=== PATIENT | male | born 1955 | race Caucasian/White ===

== ENCOUNTER 2017-10-08 08:54 | Inpatient (IN) | payer OTHER ==
[2017-10-08] MEDS ORDERED: HYDROMORPHONE HCL INJ/PF 2 MG/ML AMPULE IV ONE (09:13)
--- NOTE | 2017-10-08 09:13 | ER Document Report ---
ED General - General Chief Complaint: Ankle Injury Stated Complaint: RIGHT ANKLE PAIN Time Seen by Provider: 10/08/17 09:00 Mode of Arrival: Ambulatory Information source: Patient Notes: 62 yr old male presents with complaints of right ankle pain of 1 week duration. Pt denies any fevers or chills, noted he slipped on his ankle , unable to ambulated without pain. pt seen at [facility],noted to have trimalleolar fracture , no ortho coverage was found and patient was attempted to be transferred but he refused. pt went ot [facility] today and sent in for evaluation. TRAVEL OUTSIDE OF THE [place] IN LAST 30 DAYS: No - HPI Onset: Last week Onset/Duration: Persistent Quality of pain: Sharp Severity: Mild Pain Level: 1 Associated symptoms: Body/muscle aches Exacerbated by: Movement Relieved by: Denies Similar symptoms previously: Yes Recently seen / treated by doctor: Yes Past Medical History - Social History Smoking Status: Current Every Day Smoker Cigarette use (# per day): Yes Chew tobacco use (# tins/day): No Smoking Education Provided: No Family History: Reviewed & Not Pertinent Review of Systems - Review of Systems Notes: REVIEW OF SYSTEMS: CONSTITUTIONAL : Denies fever, chills, or sweats. Denies recent illness. EENT: Denies eye, ear, throat, or mouth pain or symptoms. Denies nasal or sinus congestion or discharge. Denies throat, tongue, or mouth swelling or difficulty swallowing. CARDIOVASCULAR: Denies chest pain. Denies palpitations or racing or irregular heart beat. Denies ankle edema. RESPIRATORY: Denies cough, cold, or chest congestion. Denies shortness of breath, difficulty breathing, or wheezing. GASTROINTESTINAL: Denies abdominal pain or distention. Denies nausea, vomiting , or diarrhea. Denies blood in vomitus, stools, or per rectum. Denies black, tarry stools. Denies constipation. GENITOURINARY: Denies difficulty urinating, painful urination, burning, frequency, blood in urine, or discharge. MUSCULOSKELETAL: Admits to right ankle pain SKIN: Denies rash, lesions or sores. HEMATOLOGIC : Denies easy bruising or bleeding. LYMPHATIC: Denies swollen, enlarged glands. NEUROLOGICAL: Denies confusion or altered mental status. Denies passing out or loss of consciousness. Denies dizziness or lightheadedness. Denies headache. Denies weakness or paralysis or loss of use of either side. Denies problems with gait or speech. Denies sensory loss, numbness, or tingling. Denies seizures. PSYCHIATRIC: Denies anxiety or stress. Denies depression, suicidal ideation, or homicidal ideation. ALL OTHER SYSTEMS REVIEWED AND NEGATIVE. Dictation was performed using [employer] voice recognition software PHYSICAL EXAMINATION: GENERAL: Well-appearing, well-nourished and in no acute distress. HEAD: Atraumatic, normocephalic. EYES: Pupils equal round and reactive to light, extraocular movements intact, sclera anicteric, conjunctiva are normal. ENT: Nares patent, oropharynx clear without exudates. Moist mucous membranes. NECK: Normal range of motion, supple without lymphadenopathy LUNGS: Breath sounds clear to auscultation bilaterally and equal. No wheezes rales or rhonchi. HEART: Regular rate and rhythm without murmurs ABDOMEN: Soft, nontender, nondistended abdomen. No guarding, no rebound. No masses appreciated. Musculoskeletal: Right foot swelling ankle deformity NEUROLOGICAL: Cranial nerves grossly intact. Normal speech, normal gait. Normal sensory, motor exams PSYCH: Normal mood, normal affect. SKIN: There is skin tear medial ankle with cellulitic component to the mid tib- fib Physical Exam - Vital signs Vitals: Temp Pulse Resp BP Pulse Ox 97.8 F 84 18 153/88 H 98 10/08/17 09:04 10/08/17 09:04 10/08/17 09:04 10/08/17 09:04 10/08/17 09:04 Course - Re-evaluation Re-evalutation: 10/08/17 09:13 Dr Khan paged, it appears the patient's has fracture with cellulitic component 10/08/17 10:38 X-rays consistent with fracture, lab work antibiotics have been started 10/08/17 10:47 Dr. khan will admit the patient to his service - Vital Signs Vital signs: Temp Pulse Resp BP Pulse Ox 97.8 F 84 18 153/88 H 98 10/08/17 09:04 10/08/17 09:04 10/08/17 09:04 10/08/17 09:04 10/08/17 09:04 - Laboratory Result Diagrams: 10/08/17 09:39 10/08/17 09:39 Laboratory results interpreted by me: 10/08/17 10/08/17 09:39 09:39 RDW 14.6 H Chloride 95 L Carbon Dioxide 32 H BUN 24 H Glucose 113 H Calcium 10.4 H Alkaline Phosphatase 199 H - Diagnostic Test Radiology reviewed: Image reviewed - Bimalleolar fracture with Larry dislocation noted, Reports reviewed Discharge - Discharge Clinical Impression: Ankle fracture Qualifiers: Encounter type: subsequent encounter Fracture type: closed Laterality: right Fracture healing: with delayed healing Qualified Code(s): S82.891G - Other fracture of right lower leg, subsequent encounter for closed fracture with delayed healing Cellulitis Qualifiers: Site of cellulitis: extremity Site of cellulitis of extremity: lower extremity Laterality: right Qualified Code(s): L03.115 - Cellulitis of right lower limb Condition: Stable Disposition: ADMITTED INPATIENT Admitting Provider: Olga Unit Admitted: Surgical Floor
[2017-10-08] MEDS ORDERED: VANCOMYCIN HCL INJ 1000 MG VIAL IV ONE (09:19)
[2017-10-08] MEDS ORDERED: NORMAL SALINE 1000 ML 1,000 ML IV ONE (09:44)
[2017-10-08 09:54] LABS: ABSOLUTE EOSINOPHILS # (AUTO) 0.1 10^3/uL (0.0-0.6); ABSOLUTE LYMPHOCYTES (AUTO) 1.2 10^3/uL (0.5-4.7); ABSOLUTE MONOCYTES (AUTO) 0.8 10^3/uL (0.1-1.4); ABSOLUTE NEUT (AUTO) 4.4 10^3/uL (1.7-8.2); BASOPHILS % (AUTO) 0.7 % (0-2); EOSINOPHILS % (AUTO) 2.2 % (0-6); HEMATOCRIT 43.5 % (37.9-51.0); LYMPHOCYTES % (AUTO) 18.5 % (13-45); MEAN CORPUSCULAR HEMOGLOBIN 32.5 pg (27.0-33.4); MEAN CORPUSCULAR HGB CONC 34.4 g/dL (32.0-36.0); MEAN CORPUSCULAR VOLUME 94 fl (80-97); MONOCYTES % (AUTO) 12.2 % (3-13); PLATELET COUNT 406 10^3/uL (150-450); RED BLOOD COUNT 4.61 10^6/uL (4.35-5.55); RED CELL DISTRIBUTION WIDTH 14.6 % (11.5-14.0); SEGMENTED NEUTROPHILS % (AUTO) 66.4 % (42-78); TOTAL CELLS COUNTED % (AUTO) 100 %; WHITE BLOOD COUNT 6.6 10^3/uL (4.0-10.5)
[2017-10-08 10:10] LABS: ALANINE AMINOTRANSFERASE 46 U/L (21-72); ALBUMIN 4.9 g/dL (3.5-5.0); ALKALINE PHOSPHATASE 199 U/L (38-126); ANION GAP 13 (5-19); ASPARTATE AMINO TRANSFERASE 54 U/L (17-59); BILIRUBIN,DIRECT 0.2 mg/dL (0.0-0.4); BILIRUBIN,TOTAL 0.5 mg/dL (0.2-1.3); BLOOD UREA NITROGEN 24 mg/dL (7-20); CALCIUM 10.4 mg/dL (8.4-10.2); CARBON DIOXIDE 32 mmol/L (22-30); CHLORIDE 95 mmol/L (98-107); GLUCOSE 113 mg/dL (75-110); POTASSIUM 3.6 mmol/L (3.6-5.0); SODIUM 140.4 mmol/L (137-145); TOTAL PROTEIN 7.9 g/dL (6.3-8.2)
--- NOTE | 2017-10-08 10:17 | RADIOLOGY REPORT (SQ) ---
EXAM DESCRIPTION: ANKLE RIGHT COMPLETE COMPLETED DATE/TIME: 10/08/2017 9:49 am REASON FOR STUDY: trimallelar fracture COMPARISON: None. NUMBER OF VIEWS: Three views. TECHNIQUE: AP, lateral, and oblique radiographic images acquired of the right ankle. LIMITATIONS: None. FINDINGS: MINERALIZATION: Normal. BONES: There is an oblique fracture of the distal fibula in transverse fracture of the medial malleol us. JOINTS: There is lateral displacement of the talus in relation to the ankle mortise. SOFT TISSUES: There is associated soft tissue swelling. A radiopaque density is identified projected in the soft tissues adjacent to the tarsal bones anteriorly of uncertain etiology. OTHER: No other significant finding. IMPRESSION: Fractures involving the distal fibula and medial malleolus as noted above. There is lat eral displacement of the talus in relation to the ankle mortise. Other findings as noted above TECHNICAL DOCUMENTATION: JOB ID: [id number] [employer]- All Rights Reserved Reading location - IP/workstation name: [email or web address]
--- NOTE | 2017-10-08 13:42 | EKG REPORT ---
SEVERITY:- BORDERLINE ECG - SINUS RHYTHM NONSPECIFIC ST-T CHANGES- INFERIOR LEADS : Confirmed by: Fritz Santos MD 08-Oct-2017 13:40:28
[2017-10-08] MEDS ORDERED: ACETAMINOPHEN 325 MG TABLET PO PRN (14:37)
[2017-10-08] MEDS ORDERED: OXYCODONE-ACETAMINOPHEN 5-325 MG TABLET PO PRN (14:37)
[2017-10-08] MEDS ORDERED: ONDANSETRON HCL INJ/PF 4 MG/2 ML SDV IV PRN (14:37)
[2017-10-08] MEDS ORDERED: DEXTROSE 5%-LACTATED RINGERS 1,000 ML IV PRN (14:37)
--- NOTE | 2017-10-08 15:23 | PDOC H&P ---
History of Present Illness Admission Date/PCP: 10/08/17 10:57 Patient complains of: Right ankle fracture, right lower extremity cellulitis History of Present Illness: HIMANSHU TROY is a 62 year old male who slipped and fell on September2017. He sought care in [facility] however there was no costume specialist to manage his care. He was unable to ambulate without pain however tolerated pain for the next few days. Today he reports he could no longer manage the pain and went to [facility] to be evaluated and treated. He was then transferred to [facility] emergency department for further workup and management. In the emergency department x-ray imaging confirms trimalleolar ankle fracture of right ankle as well as cellulitis of right lower extremity. He has been admitted to orthopedic surgical service for IV antibiotic therapy and maintenance control of cellulitis and later likely open reduction internal fixation right ankle fracture. Past Medical History Cardiac Medical History: Reports: Hypertension Pulmonary Medical History: Reports: None EENT Medical History: Reports: None Neurological Medical History: Reports: None Endocrine Medical History: Reports: None Renal/ Medical History: Reports: None Malignancy Medical History: Reports: None GI Medical History: Reports: None Musculoskeltal Medical History: Reports: None Skin Medical History: Reports: None Psychiatric Medical History: Reports: General Anxiety Disorder Traumatic Medical History: Reports: None Hematology: Reports: None Infectious Medical History: Reports: None Past Surgical History Past Surgical History: Reports: None Social History Information Source: Patient Smoking Status: Current Every Day Smoker Family History Family History: Reviewed & Not Pertinent Parental Family History Reviewed: No Children Family History Reviewed: No Sibling(s) Family History Reviewed.: No Medication/Allergy Home Medications: Venlafaxine HCl ER [Effexor Xr 75 mg Cap.sr] 75 mg PO DAILY 10/08/17 Venlafaxine HCl [Effexor Xr] 150 mg PO DAILY 10/08/17 Review of Systems Constitutional: PRESENT: as per HPI Ears: ABSENT: as per HPI, hearing changes, other Nose, Mouth, and Throat: ABSENT: as per HPI, headache(s), mouth pain, sore throat, vertigo, other Cardiovascular: ABSENT: as per HPI, chest pain, dyspnea on exertion, edema, orthropnea, palpitations, other Respiratory: ABSENT: as per HPI, cough, dyspnea, hemoptysis, sputum, other Gastrointestinal: ABSENT: as per HPI, abdominal pain, bloating, coffee ground emesis, constipation, diarrhea, dysphagia, heartburn, hematemesis, hematochezia , melena, nausea, vomiting, other Genitourinary: ABSENT: as per HPI, difficulty urinating, dysuria, hematuria, nocturia, other Musculoskeletal: PRESENT: joint swelling, other - Reports right ankle pain and swelling particularly without elevation Integumentary: PRESENT: erythema Psychiatric: PRESENT: anxiety - Patient reports he suffers from anxiety and takes medication for it Endocrine: ABSENT: as per HPI, cold intolerance, flushing, heat intolerance, menstrual abnormalities, polydipsia, polyphagia, polyuria, other Hematologic/Lymphatic: ABSENT: as per HPI, easy bleeding, easy bruising, lymphadenopathy, other Allergic/Immunologic: ABSENT: as per HPI, seasonal rhinorrhea, other Physical Exam Vital Signs: Temp Pulse Resp BP Pulse Ox 37.0 C 69 18 164/77 H 98 10/08/17 12:47 10/08/17 12:47 10/08/17 12:47 10/08/17 12:47 10/08/17 12:47 General appearance: PRESENT: mild distress Head exam: PRESENT: atraumatic Eye exam: PRESENT: EOMI Mouth exam: PRESENT: moist Teeth exam: PRESENT: poor dentation Respiratory exam: PRESENT: unlabored Pulses: PRESENT: normal radial pulses Vascular exam: PRESENT: normal capillary refill Extremities exam: PRESENT: joint swelling, pedal edema, tenderness Additional comments: Patient sitting upright in hospital bed with bilateral lower extremities in full extension. Right lower extremity is placed in short leg splint. Splint materials and bandages are clean dry and intact. This is left in place due to instability of patient's fracture. Slightly tender to palpation through splint along anterior mortise joint. There is minimal lower extremity edema noted outside of the splint. No sensory or motor deficits noted. Less than 2 seconds capillary refill to toes on right lower extremity. Musculoskeletal exam: PRESENT: ambulatory Additional comments: Patient is ambulatory with crutches however he is non-weightbearing status on right lower extremity. This was reiterated to the patient and importance of nonweightbearing stress due to the instability of his fracture. Patient voiced understanding and is in agreement with this plan. He reports decreased pain with elevation however increased pain with leg in anatomical position standing upright. Patient was informed elevation and ice is ideal to decrease swelling and pain associated with his fracture at this point. He will likely undergo surgical fixation of his ankle fracture after which he will benefit from physical therapy services. Neurological exam: PRESENT: alert, awake, oriented to person, oriented to place , oriented to time, oriented to situation, CN II-XII grossly intact. ABSENT: motor sensory deficit Psychiatric exam: PRESENT: agitated, anxious, other - Patient became very vocal and angry throughout exam. He notes he did not expect to be admitted to the hospital and/or require surgery. He is very concerned for the health of his chickens in his home. He is not pleased with the treatment plan in place. Focused psych exam: PRESENT: psychomotor agitation, restlessness Skin exam: PRESENT: dry, intact, warm, other - Although splint was not removed from right lower extremity, previous exam completed by emergency room physician indicates swelling, sores, abrasions of right lower extremity indicative of cellulitis.. ABSENT: cyanosis, rash Results Impressions: Ankle X-Ray 10/08/17 09:19 IMPRESSION: Fractures involving the distal fibula and medial malleolus as noted above. There is lateral displacement of the talus in relation to the ankle mortise. Other findings as noted above Assessment & Plan - Diagnosis (1) Ankle fracture Qualifiers: Encounter type: subsequent encounter Fracture type: closed Laterality: right Fracture healing: with delayed healing Qualified Code(s): S82.891G - Other fracture of right lower leg, subsequent encounter for closed fracture with delayed healing Plan: 62-year-old white male with trimalleolar right ankle fracture currently stabilized in a splint. Patient has been admitted to surgical floor by orthopedic service. At this time he will receive multiple doses of IV antibiotics to control cellulitis of right lower extremity. Once infection is under control we will likely plan for open reduction internal fixation of right ankle fracture. In the meantime we will continue: 1. DVT prophylaxis 2. Pain control 3. Nonweightbearing status right lower extremity 4. IV clindamycin (2) Cellulitis Qualifiers: Site of cellulitis: extremity Site of cellulitis of extremity: lower extremity Laterality: right Qualified Code(s): L03.115 - Cellulitis of right lower limb Plan: Patient has been admitted to the hospital under orthopedic surgery and will likely undergo open reduction internal fixation for right trimalleolar ankle fracture. Before this can occur however we must maintain control of right lower extremity cellulitis. Blood cultures have been ordered to assess extent of infection and patient has been placed on 600 mg IV clindamycin Q8 hours. Once blood cultures have been obtained we may alter antibiotics accordingly.
[2017-10-08] MEDS ORDERED: VENLAFAXINE HCL 75 MG CAP.SR.24H PO ONE (16:30)
--- NOTE | 2017-10-08 17:47 | PDOC DISCHARGE SUMMARY ---
General - Admit/Disc Date/PCP Admission Date/Primary Care Provider: 10/08/17 10:57 Discharge Date: 10/08/17 - Additional Information Discharge Diet: As Tolerated Discharge Activity: Keep Legs Elevated, No Lifting Over 10 Pounds, No Lifting/ Push/Pulling, Other - Non weight bearing right ankle Prescriptions: Cephalexin Monohydrate [Keflex 500 mg Capsule] 500 mg PO QID #20 capsule Oxycodone HCl/Acetaminophen [Percocet 5-325 mg Tablet] 1 - 2 tab PO ASDIR PRN # 25 tablet PRN Reason: Home Medications: Amlodipine Besylate [Norvasc 10 mg Tablet] 10 mg PO DAILY 10/08/17 Cephalexin Monohydrate [Keflex 500 mg Capsule] 500 mg PO QID #20 capsule Hydrochlorothiazide [Hydrodiuril 25 mg Tablet] 25 mg PO DAILY 10/08/17 Ipratropium/Albuterol Sulfate [Combivent Inhaler] 1 puff IH QID 10/08/17 Lidocaine HCl 1 applic TP BIDP PRN 10/08/17 Metoprolol Tartrate [Lopressor 50 mg Tablet] 25 mg PO Q12 10/08/17 Multivitamin [Tab-A-Timmy (Multiple Vitamin) Tablet] 1 tab PO DAILY 10/08/17 Oxycodone HCl/Acetaminophen [Percocet 5-325 mg Tablet] 1 - 2 tab PO ASDIR PRN # 25 tablet 10/08/17 Venlafaxine HCl ER [Effexor Xr 75 mg Cap.sr] 75 mg PO DAILY 10/08/17 Venlafaxine HCl [Effexor Xr] 150 mg PO DAILY 10/08/17 History of Present Illness History of Present Illness: HIMANSHU TROY is a 62 year old male who on 10/01/17 sustained a fall resulting in a fracture dislocation of his right ankle. Patient was seen at [facility] where he was found to have a fracture dislocation of his ankle and was placed in a splint. Patient had delayed follow-up but was seen by [facility] today and felt patient required surgical intervention and was then sent to emergency room. While in the emergency room concern of possible cellulitis was diagnosed and patient was started on IV antibiotics and placed in a splint and admitted to the orthopedic service. Currently patient states pain is controlled. Has been taking Percocet with some relief. Hospital Course Hospital Course: Patient was admitted to orthopedic service on 10/08/17 and given IV antibiotics. Subsequently his splint was removed that was placed emergency room to further evaluate patient's ankle and medial wound. Patient was found to have fracture blisters but no definitive infection was appreciated. Thus patient was placed in a well-padded 3 sided plaster splint maintaining reduction of the tibiotalar articulation which was confirmed by x-ray. At that point it was decided patient was orthopedically stable for discharge home. He was given antibiotics prophylactically and stressed the importance of nonweightbearing and elevation of the extremity. Patient will contact our office on 10/11/17 to set up follow-up appointment so he can undergo definitive fixation. Fixation is being delayed due to patient's wound issues which would be high risk for infection. Physical Exam Vital Signs: Temp Pulse Resp BP Pulse Ox 98.3 F 74 18 147/80 H 94 10/08/17 15:35 10/08/17 15:35 10/08/17 15:35 10/08/17 15:35 10/08/17 15:35 General appearance: PRESENT: no acute distress, well-developed, well-nourished Head exam: PRESENT: atraumatic, normocephalic Eye exam: PRESENT: conjunctiva pink, EOMI, PERRLA. ABSENT: scleral icterus Ear exam: PRESENT: normal external ear exam Mouth exam: PRESENT: moist, tongue midline Neck exam: PRESENT: full ROM. ABSENT: carotid bruit, JVD, lymphadenopathy, thyromegaly Cardiovascular exam: PRESENT: RRR. ABSENT: diastolic murmur, rubs, systolic murmur Pulses: PRESENT: normal dorsalis pedis pul, +2 pedal pulses bilateral Vascular exam: PRESENT: normal capillary refill GI/Abdominal exam: PRESENT: normal bowel sounds, soft. ABSENT: distended, guarding, mass, organolmegaly, rebound, tenderness Rectal exam: PRESENT: deferred Extremities exam: PRESENT: other - Right ankle: Fracture blisters noted posteriorly and medially with skin loss along the medial aspect. No evidence of open wound or exposed bone. Significant swelling and ecchymosis throughout the ankle. Dorsalis pedis pulse 2+. No sensory deficits. Intact flexion extension of the toes. Neurological exam: PRESENT: alert, awake, oriented to person, oriented to place , oriented to time, oriented to situation, CN II-XII grossly intact. ABSENT: motor sensory deficit Psychiatric exam: PRESENT: appropriate affect, normal mood. ABSENT: homicidal ideation, suicidal ideation Skin exam: PRESENT: dry, intact, warm. ABSENT: cyanosis, rash Results Impressions: Ankle X-Ray 10/08/17 09:19 IMPRESSION: Fractures involving the distal fibula and medial malleolus as noted above. There is lateral displacement of the talus in relation to the ankle mortise. Other findings as noted above Status: Image reviewed by me - I have reviewed multiple radiographs of the right ankle which demonstrate trimalleolar ankle fracture with lateral displacement but maintained reduction within the tibiotalar articulation Qualifiers - * PATEINT BEING DISCHARGED WITH ANY OF THE FOLLOWING DIAGNOSIS?: No VTE patient discharged on overlapping Therapy?: No Reason(s) for not prescribing Overlap Therapy:: Not indicated Stroke Pt being discharged on Anti-thrombolytic therapy?: No Reason(s) for not prescribing Anti-thrombolytic therapy:: Not indicated Stroke Pt being discharged on Anti-coagulation therapy?: No Reason(s) for not prescribing Anti-coagulation therapy:: Not indicated Stroke Pt being discharged on Statins?: No Reason(s) for not prescribing Statins therapy:: Not indicated AL Pt being discharged on Aspirin therapy?: No Reason(s) for not prescribing Aspirin therapy:: Not indicated AL Pt being discharged on Statins?: No Reason(s) for not prescribing Statin therapy:: Not indicated AL Pt discharged ACEI/ARBS?: No Reason(s) for not prescribing ACEI/ARBS:: Not indicated HF Pt being discharged on ACEI for LVEF less than 40%?: No Reason(s) for not prescribing ACEI:: Not indicated HF Pt being discharged on ARBS for LVEF less than 40%?: No Reason(s) for not prescribing ARBS:: Not indicated HF Pt with Afib discharged with Warfarin?: No Reason(s) for not prescribing Warfarin:: Not indicated HF Pt discharged on evidence-based Beta Christiano:: No Reason(s) for not prescribing evidence-based Beta Christiano:: Not indicated Plan Discharge Plan: Given the patient's fracture blisters and swelling is not a good surgical candidate at this point requires the swelling to subside in order to proceed with fixation on a lower infectious risks. Thus today patient will maintain nonweightbearing in his axillary crutches. Has been given prescription for Percocet to take as needed for pain. Will follow in the office in 7 days for recheck. Patient noticed increasing pain, swelling, temperature greater than 101.5 he will contact our office. Time Spent: Greater than 30 Minutes
--- NOTE | 2017-10-08 17:59 | RADIOLOGY REPORT (SQ) ---
EXAM DESCRIPTION: ANKLE RIGHT COMPLETE COMPLETED DATE/TIME: 10/08/2017 5:43 pm REASON FOR STUDY: Post splinting. COMPARISON: 10/08/2017 TECHNIQUE: AP lateral and oblique images of right ankle were obtained post splinting. LIMITATIONS: Bony detail is limited somewhat due to an overlying cast FINDINGS: The previously described fractures of the distal tibia and fibula are again identified. O verlying cast is identified IMPRESSION: Images obtained post casting as noted above. TECHNICAL DOCUMENTATION: JOB ID: [id number] [employer]- All Rights Reserved Reading location - IP/workstation name: [email or web address]
[2017-10-08] MEDS ORDERED: CLINDAMYCIN 600 MG/D5W RTU 600 MG/50 ML RTUPB IV SCH (18:00)
[2017-10-08 18:18] VITALS: BP 132/84
[2017-10-08] MEDS ORDERED: ZOLPIDEM TARTRATE 5 MG TABLET PO SCH (22:00)
[2017-10-08] MEDS ORDERED: DEXTROSE 5% IV SCH (22:00)
[2017-10-08] MEDS ORDERED: CLINDAMYCIN PHOSPHATE IV SCH (22:00)
[2017-10-08] MEDS ORDERED: WATER IV SCH (22:00)
[2017-10-09] MEDS ORDERED: LANSOPRAZOLE 15 MG TAB.RAP.DR PO SCH (06:00)
[2017-10-09] MEDS ORDERED: DOCUSATE SODIUM 100 MG CAPSULE PO SCH (10:00)
[2017-10-09] MEDS ORDERED: VENLAFAXINE HCL 75 MG CAP.SR.24H PO SCH (10:00)
[2017-10-09] MEDS ORDERED: ENOXAPARIN SODIUM INJ 30 MG/0.3 ML DISP.SYRIN SUBCUT SCH (10:00)
== END 2017-10-08 18:52 | disposition home or self-care (01) | DRG 603 ==
LOC: ER 08:54 → EH 10:57 → 4W 12:58
PROVIDERS: ADMIT Orthopaedic Surgery; ATTEND Orthopaedic Surgery
PROC: 2W3LX1Z Immobilization of Right Lower Extremity using Splint (ICD-10-PCS; principal; 2017-10-08)
DX: L03.115 Cellulitis of right lower limb (principal); S82.851G Displaced trimalleolar fracture of right lower leg, subsequent encounter for closed fracture with delayed healing; I10 Essential (primary) hypertension; F41.1 Generalized anxiety disorder; F17.210 Nicotine dependence, cigarettes, uncomplicated; W01.0XXD Fall on same level from slipping, tripping and stumbling without subsequent striking against object, subsequent encounter; Z79.899 Other long term (current) drug therapy; Z91.81 History of falling
CPT/HCPCS: 36415; 80053; 83605; 85025; 87040; 93005; 93010; 96365; 96375; 99285; J1170; J3370; J7030

== ENCOUNTER 2017-10-18 07:52 | Day surgery (SDC) | payer OTHER ==
[~2017-10-18 07:52] MED LIST: ACETAMINOPHEN 100 ML IV ONE; CEFAZOLIN SODIUM 2 GM in DEXTROSE 5%-WATER 100 ML IV PRN; CEFAZOLIN SODIUM 2 GM in NORMAL SALINE 100 ML IV PRN; DEXAMETHASONE SOD PHOSPHATE INJ 4 MG/1 ML VIAL ONE; FENTANYL CITRATE INJ/PF 100 MCG/2 ML AMPUL ONE; LIDOCAINE 2% INJ-PF (20 MG/ML) 10 ML AMPUL ONE; MIDAZOLAM 2 MG/2 ML INJ ONE; ONDANSETRON HCL INJ/PF 4 MG/2 ML SDV ONE; PROPOFOL INJ 200 MG/20 ML VIAL IV ONE; TETRACAINE HCL/PF 20MG/2ML AMPULE (SPINAL) ONE
[2017-10-18 08:45] LABS: ABSOLUTE BASOPHILS # (AUTO) 0.1 10^3/uL (0.0-0.2); ABSOLUTE EOSINOPHILS # (AUTO) 0.2 10^3/uL (0.0-0.6); ABSOLUTE LYMPHOCYTES (AUTO) 1.3 10^3/uL (0.5-4.7); ABSOLUTE MONOCYTES (AUTO) 0.9 10^3/uL (0.1-1.4); ABSOLUTE NEUT (AUTO) 6.9 10^3/uL (1.7-8.2); BASOPHILS % (AUTO) 0.8 % (0-2); EOSINOPHILS % (AUTO) 2.6 % (0-6); HEMATOCRIT 39.6 % (37.9-51.0); HEMOGLOBIN 13.8 g/dL (13.5-17.0); LYMPHOCYTES % (AUTO) 13.8 % (13-45); MEAN CORPUSCULAR HEMOGLOBIN 32.9 pg (27.0-33.4); MEAN CORPUSCULAR HGB CONC 34.9 g/dL (32.0-36.0); MEAN CORPUSCULAR VOLUME 94 fl (80-97); MONOCYTES % (AUTO) 9.5 % (3-13); PLATELET COUNT 418 10^3/uL (150-450); RED BLOOD COUNT 4.21 10^6/uL (4.35-5.55); RED CELL DISTRIBUTION WIDTH 14.4 % (11.5-14.0); SEGMENTED NEUTROPHILS % (AUTO) 73.3 % (42-78); TOTAL CELLS COUNTED % (AUTO) 100 %; WHITE BLOOD COUNT 9.4 10^3/uL (4.0-10.5)
--- NOTE | 2017-10-18 08:54 | RADIOLOGY REPORT (SQ) ---
EXAM DESCRIPTION: CHEST SINGLE VIEW COMPLETED DATE/TIME: 10/18/2017 8:46 am REASON FOR STUDY: preop COMPARISON: None. EXAM PARAMETERS: NUMBER OF VIEWS: One view. TECHNIQUE: Single frontal radiographic view of the chest acquired. RADIATION DOSE: NA LIMITATIONS: None. FINDINGS: LUNGS AND PLEURA: No opacities, masses or pneumothorax. No pleural effusion. MEDIASTINUM AND HILAR STRUCTURES: No masses. Contour normal. HEART AND VASCULAR STRUCTURES: Heart normal in size. Normal vasculature. BONES: No acute findings. HARDWARE: None in the chest. OTHER: No other significant finding. IMPRESSION: NO ACUTE RADIOGRAPHIC FINDING IN THE CHEST. TECHNICAL DOCUMENTATION: JOB ID: [id number] [employer]- All Rights Reserved Reading location - IP/workstation name: [email or web address]
[2017-10-18 09:06] LABS: ANION GAP 14 (5-19); BLOOD UREA NITROGEN 24 mg/dL (7-20); CALCIUM 9.9 mg/dL (8.4-10.2); CARBON DIOXIDE 29 mmol/L (22-30); CHLORIDE 99 mmol/L (98-107); GLUCOSE 110 mg/dL (75-110); POTASSIUM 3.8 mmol/L (3.6-5.0); SODIUM 141.7 mmol/L (137-145)
[2017-10-18] MEDS ORDERED: BUPIVACAINE HCL 0.5%-EPI 1:200000 INJ/PF 30 ML VIAL ONE (10:09)
[2017-10-18] MEDS ORDERED: MEPERIDINE HCL/PF INJ 25 MG/1 ML DISP.SYRIN IV PRN (10:44)
[2017-10-18] MEDS ORDERED: DIPHENHYDRAMINE HCL 50 MG/ML VIAL IV PRN (10:44)
[2017-10-18] MEDS ORDERED: FENTANYL CITRATE INJ/PF 100 MCG/2 ML AMPUL IV PRN ×3 (10:44)
[2017-10-18] MEDS ORDERED: MORPHINE SULFATE 10 MG/ML INJ IV PRN (10:44)
[2017-10-18] MEDS ORDERED: PROMETHAZINE HCL INJ 25 MG/1 ML VIAL IV PRN ×2 (10:44)
[2017-10-18] MEDS ORDERED: ONDANSETRON HCL INJ/PF 4 MG/2 ML SDV IV PRN (10:44)
--- NOTE | 2017-10-18 11:14 | Operative Report ---
Operative Report DATE OF SURGERY: 10/18/17 PREOPERATIVE DIAGNOSIS: Right bimalleolar ankle fracture/nonunion OPERATION: Open reduction internal fixation right ankle fracture. Takedown of malunion SURGEON: NICKI LUKE ANESTHESIA: GA PROCEDURE: With the patient supine and the operating room table the right lower extremities prepped and draped in sterile fashion. A longitudinal incision the incision was made over the distal lateral fibula and sharp dissection was carried incision to the underlying bone. The fracture is identified. The fracture callus that had set up is removed using combination of curettes and rondure. A reduction is affected by placing the periosteal elevator in the fracture and using as a prior bar to get the fracture back to near anatomic reduction. Subsequently a [place] titanium lateral distal fibula plate is applied secured with 3 screws proximally 4 screws distally. Attention is now turned to the medial aspect of the ankle. Similarly a longitudinal incision was made over the medial malleolus. The fracture is identified. The fracture callus that has intervened is removed using rondure and a curette. The fracture is reduced and held in place with 2 pins. Subsequently to 50 mm 4.0 mm cannulated screws are placed over the pins to secure the reduction. At this point the tourniquet was deflated and hemostasis obtained with electrocautery. The wound is closed in layers with interrupted Vicryl followed by roxane. A sterile compressive dressing and posterior plaster splint were applied. The patient's return to the PACU in satisfactory condition.
[2017-10-18] MEDS ORDERED: OXYCODONE HCL IR 5 MG TABLET PO PRN (11:23)
[2017-10-18] MEDS ORDERED: ONDANSETRON 4 MG TAB.RAPDIS SL PRN (11:24)
[2017-10-18] MEDS: FENTANYL CITRATE INJ/PF 100 MCG/2 ML AMPUL ONE ×2 (11:34→11:39)
[2017-10-18] MEDS: HYDROMORPHONE HCL INJ/PF 2 MG/ML AMPULE ONE ×2 (11:45→12:02)
--- NOTE | 2017-10-18 12:04 | RADIOLOGY REPORT (SQ) ---
EXAM DESCRIPTION: NO CHG FLUORO; ANKLE RIGHT AP/LATERAL COMPLETED DATE/TIME: 10/18/2017 11:34 am REASON FOR STUDY: ORIF RT ANKLE ASST WITH FLUORO IN OR S82.841A DISPLACED BIMALLEOLAR FRACTURE OF R IGHT LOWER LEG, COMPARISON: None. FLUOROSCOPY TIME: 0.5 minutes 3 images saved to PACS. TECHNIQUE: Intra-operative images acquired during surgical procedure to evaluate progress. NUMBER OF IMAGES: 3 LIMITATIONS: None. FINDINGS: Selected images from plate and screw fixation distal fibular fracture, screw fixation medi al malleolar fracture. Alignment is anatomic. IMPRESSION: IMAGE(S) OBTAINED DURING PROCEDURE. COMMENT: Quality ID 145: Final reports for procedures using fluoroscopy that document radiation exp osure indices, or exposure time and number of fluorographic images (if radiation exposure indices are not available) Please consult full operative report of the attending physician for description of the procedure. TECHNICAL DOCUMENTATION: JOB ID: [id number] [employer]- All Rights Reserved Reading location - IP/workstation name: [email or web address]-[email or web address]
--- NOTE | 2017-10-18 12:05 | RADIOLOGY REPORT (SQ) ---
EXAM DESCRIPTION: NO CHG FLUORO; ANKLE RIGHT AP/LATERAL COMPLETED DATE/TIME: 10/18/2017 11:34 am REASON FOR STUDY: ORIF RT ANKLE ASST WITH FLUORO IN OR S82.841A DISPLACED BIMALLEOLAR FRACTURE OF R IGHT LOWER LEG, COMPARISON: None. FLUOROSCOPY TIME: 0.5 minutes 3 images saved to PACS. TECHNIQUE: Intra-operative images acquired during surgical procedure to evaluate progress. NUMBER OF IMAGES: 3 LIMITATIONS: None. FINDINGS: Selected images from plate and screw fixation distal fibular fracture, screw fixation medi al malleolar fracture. Alignment is anatomic. IMPRESSION: IMAGE(S) OBTAINED DURING PROCEDURE. COMMENT: Quality ID 145: Final reports for procedures using fluoroscopy that document radiation exp osure indices, or exposure time and number of fluorographic images (if radiation exposure indices are not available) Please consult full operative report of the attending physician for description of the procedure. TECHNICAL DOCUMENTATION: JOB ID: [id number] [employer]- All Rights Reserved Reading location - IP/workstation name: [email or web address]
--- NOTE | 2017-10-18 13:24 | EKG REPORT ---
SEVERITY:- ABNORMAL ECG - SINUS RHYTHM RIGHT BUNDLE BRANCH BLOCK : Confirmed by: Fritz Santos MD 18-Oct-2017 13:22:45
[2017-10-18 14:02] VITALS: BP 152/97
== END 2017-10-18 13:40 | disposition home or self-care (01) ==
LOC: OROUT 07:52
PROVIDERS: ATTEND Orthopaedic Surgery
PROC: 0QSG04Z Reposition Right Tibia with Internal Fixation Device, Open Approach (ICD-10-PCS; principal; 2017-10-18 10:00)
DX: S82.841A Displaced bimalleolar fracture of right lower leg, initial encounter for closed fracture (principal); F17.210 Nicotine dependence, cigarettes, uncomplicated; I10 Essential (primary) hypertension; W01.0XXA Fall on same level from slipping, tripping and stumbling without subsequent striking against object, initial encounter; Y92.000 Kitchen of unspecified non-institutional (private) residence as the place of occurrence of the external cause
CPT/HCPCS: 36415; 85025; 80048; 73600; 71045; 93005; 93010; 27766; C1713 ×7; C1769; J2250; J3490 ×3; J0690; J1100; J3010; J1170; J2405; J2704; J0131; 01480